=== PATIENT | male | born 1975 | race Caucasian/White ===

== ENCOUNTER 2016-12-15 08:08 | Day surgery (SDC) | payer BC ==
[~2016-12-15 08:08] MED LIST: Buffered Lidocaine 0.9% SYRIN* 5 ML/SYR SYRINGE INTRADERM ONE; Famotidine IV* 10 MG/ML 2 ML (20 mg) IV ONE; Metoclopramide TAB* 10 MG PO ONE
[2016-12-15] MEDS ORDERED: Metoclopramide TAB* 10 MG ONE (08:22)
[2016-12-15] MEDS ORDERED: Famotidine IV* 10 MG/ML 2 ML (20 mg) ONE (08:22)
[2016-12-15] MEDS ORDERED: ceFAZolin 2 GM PREMIX (*) 50 ML IVPB ONE (08:23)
[2016-12-15] MEDS ORDERED: Buffered Lidocaine 0.9% SYRIN* 5 ML/SYR SYRINGE ONE (08:23)
[2016-12-15] MEDS ORDERED: KETAMINE HCL* 50 MG/ML 10 ML VIAL ONE (09:03)
[2016-12-15] MEDS ORDERED: Lidocaine 2% PF * 5 ML VIAL ONE (09:03)
[2016-12-15] MEDS ORDERED: Midazolam* 1 MG/ML 5 ML VIAL (5 MG) ONE (09:03)
[2016-12-15] MEDS ORDERED: Propofol* 10 MG/ML 20 ML BTL IV PUSH ONE ×2 (09:03→10:20)
[2016-12-15] MEDS ORDERED: Dexamethasone IV* 4 MG/ML 1 ML (4 MG) ONE (09:03)
[2016-12-15] MEDS ORDERED: fentaNYL* 50 MCG/ML 2 ML VIAL (100 MCG VIAL) ONE (09:03)
[2016-12-15] MEDS ORDERED: Ondansetron INJ* 2 MG/ML VIAL ONE (09:03)
[2016-12-15] MEDS ORDERED: Mineral Oil Sterile, TOPICAL* 25 ML BTL ONE (09:32)
[2016-12-15] MEDS ORDERED: Methylene Blue 0.5 %* 50 MG/10 ML AMP IV ONE (09:32)
[2016-12-15] MEDS ORDERED: Lidocaine 2% EPI 1:200000 MPF* 20 ML VIAL ONE (09:33)
[2016-12-15] MEDS ORDERED: Bupivacaine 0.5% SDV PF* 30 ML VIAL ONE (09:58)
[2016-12-15] MEDS ORDERED: Bupivacaine 0.25% SDV* 30 ML ONE (09:59)
[2016-12-15] MEDS ORDERED: Midazolam* 1 MG/ML 2 ML VIAL (2 MG) ONE (09:59)
[2016-12-15] MEDS ORDERED: fentaNYL* 50 MCG/ML 2 ML VIAL (100 MCG VIAL) IV PRN (10:26)
[2016-12-15] MEDS ORDERED: oxyCODONE/Acetamin 5/325 MG* TAB PO PRN (10:26)
[2016-12-15] MEDS ORDERED: Ondansetron INJ* 2 MG/ML VIAL IV PRN (10:26)
[2016-12-15 12:00] VITALS: BP 106/65
== END 2016-12-15 12:01 | disposition home or self-care (01) ==
LOC: OR 08:08
PROVIDERS: ATTEND Plastic Surgery
DX: L72.0 Epidermal cyst (principal)
CPT/HCPCS: 88304; A9270-GY; J0690; J1100; J2250; J2405; J2704; J3010